=== PATIENT | male | born 1975 | race African-American/Black ===

== ENCOUNTER 2022-05-28 06:20 | Emergency (ER) | payer BC, OTHER ==
[~2022-05-28] VITALS: Ht 185.4 cm; Wt 88.0 kg
[2022-05-28 06:20] VITALS: BP 112/65
== END 2022-05-28 08:10 | disposition left against medical advice (07) ==
LOC: ER 06:20
DX: H57.12 Ocular pain, left eye (principal); H57.89 Other specified disorders of eye and adnexa; Z53.21 Procedure and treatment not carried out due to patient leaving prior to being seen by health care provider